=== PATIENT | female | born 1960 | race Caucasian/White ===

== ENCOUNTER 2018-10-24 07:36 | Observation (INO) | payer MEDICAID ==
[2018-10-24 08:34] LABS: ADD MAN DIFF? NO
[2018-10-24 08:40] LABS: WHITE BLOOD COUNT 7.5 10^3/ul (4.8-10.8)
[2018-10-24 08:40] LABS: BASOPHILS % 0.3 % (0.0-2.0); EOSINOPHILS % 0.5 % (0.0-7.0); HEMATOCRIT 33.6 % (37.0-47.0); HEMOGLOBIN 10.7 g/dl (12.0-16.0); LYMPHOCYTES # 1.4 10^3/ul (0.8-2.9); LYMPHOCYTES % 18.9 % (15.0-51.0); MEAN CORPUSCULAR HEMOGLOBIN 33.2 pg (29.0-33.0); MEAN CORPUSCULAR HGB CONC 31.8 g/dl (32.0-37.0); MEAN CORPUSCULAR VOLUME 104.3 fl (82.0-101.0); MEAN PLATELET VOLUME 9.6 fl (7.4-10.4); MONOCYTE # 0.4 10^3/ul (0.3-0.9); MONOCYTES % 5.7 % (0.0-11.0); NEUTROPHIL # 5.6 10^3/ul (1.6-7.5); NEUTROPHILS % 74.3 % (39.0-77.0); PLATELET COUNT 214 10^3/UL (140-415); RED BLOOD COUNT 3.22 10^6/ul (4.20-5.40); RED CELL DISTRIBUTION WIDTH 11.9 % (11.5-14.5)
[2018-10-24] MEDS: DIPHENHYDRAMINE 50 MG CAP PO (08:41)
[2018-10-24] MEDS: DIAZEPAM 5 MG TAB PO (08:41)
[2018-10-24] MEDS: FAMOTIDINE 20 MG TAB PO (08:41)
[2018-10-24 08:54] LABS: ANION GAP 8 (5-13); BLOOD UREA NITROGEN 16 mg/dl (7-20); CALCIUM 9.5 mg/dl (8.4-10.2); CARBON DIOXIDE 28 mmol/L (21-31); CHLORIDE 108 mmol/L (97-110); CREATININE 0.73 mg/dl (0.44-1.00); Estimated GFR > 60 mL/min (>60); GLUCOSE 91 mg/dl (70-220); POTASSIUM 3.6 mmol/L (3.5-5.1); SODIUM 144 mmol/L (135-144)
[2018-10-24 08:56] LABS: INR 0.97
[2018-10-24 08:57] LABS: CHOL/HDL RATIO 2.4 RATIO; HDL CHOLESTEROL 46 mg/dl (35-98); LDL CHOLESTEROL,CALCULATED 42 mg/dl; TRIGLYCERIDES 117 mg/dl (0-149)
[2018-10-24 08:57] LABS: CHOLESTEROL 111 mg/dl (100-200)
[2018-10-24 09:16] LABS: PARTIAL THROMBOPLASTIN TIME 24.3 Sec (23.0-35.0)
[2018-10-24] MEDS ORDERED: ONDANSETRON 4 MG INJ IV (11:00)
[2018-10-24] MEDS ORDERED: OXYCODONE/ACETAMINOPHEN (5/325) TAB PO (11:00)
[2018-10-24] MEDS ORDERED: AL HYDROX/MG HYDROX/SIMETH 30 ML CUP PO (11:00)
[2018-10-24] MEDS ORDERED: DIAZEPAM 2 MG TAB PO (11:00)
[2018-10-24] MEDS: SOD CHLORIDE 0.9% 1,000 ML IV (11:22)
[2018-10-24] MEDS: ACETAMINOPHEN 325 MG TAB PO (20:45)
[2018-10-24] MEDS: TICAGRELOR 90 MG TABLET PO (20:45)
[2018-10-25 05:06] LABS: ADD MAN DIFF? NO
[2018-10-25 05:17] LABS: WHITE BLOOD COUNT 4.7 10^3/ul (4.8-10.8)
[2018-10-25 05:17] LABS: BASOPHILS % 0.4 % (0.0-2.0); EOSINOPHILS # 0.1 10^3/ul (0.0-0.5); EOSINOPHILS % 1.7 % (0.0-7.0); HEMATOCRIT 31.6 % (37.0-47.0); HEMOGLOBIN 10.2 g/dl (12.0-16.0); LYMPHOCYTES # 1.8 10^3/ul (0.8-2.9); LYMPHOCYTES % 38.9 % (15.0-51.0); MEAN CORPUSCULAR HEMOGLOBIN 33.3 pg (29.0-33.0); MEAN CORPUSCULAR HGB CONC 32.3 g/dl (32.0-37.0); MEAN CORPUSCULAR VOLUME 103.3 fl (82.0-101.0); MEAN PLATELET VOLUME 9.6 fl (7.4-10.4); MONOCYTE # 0.4 10^3/ul (0.3-0.9); MONOCYTES % 9.2 % (0.0-11.0); NEUTROPHIL # 2.3 10^3/ul (1.6-7.5); NEUTROPHILS % 49.6 % (39.0-77.0); PLATELET COUNT 179 10^3/UL (140-415); RED BLOOD COUNT 3.06 10^6/ul (4.20-5.40); RED CELL DISTRIBUTION WIDTH 12.1 % (11.5-14.5)
[2018-10-25 05:49] LABS: ANION GAP 7 (5-13); BLOOD UREA NITROGEN 14 mg/dl (7-20); CALCIUM 9.3 mg/dl (8.4-10.2); CARBON DIOXIDE 24 mmol/L (21-31); CHLORIDE 112 mmol/L (97-110); CREATININE 0.71 mg/dl (0.44-1.00); Estimated GFR > 60 mL/min (>60); GLUCOSE 93 mg/dl (70-220); POTASSIUM 3.7 mmol/L (3.5-5.1); SODIUM 143 mmol/L (135-144)
[2018-10-25] MEDS ORDERED: ASPIRIN 81 MG TAB (07:57)
[2018-10-25] MEDS: ASPIRIN (EC) 81 MG TAB PO (08:03)
[2018-10-25] MEDS: TICAGRELOR 90 MG TABLET PO (08:04)
[2018-10-25] MEDS: ACETAMINOPHEN 325 MG TAB PO (09:14)
[2018-10-25 12:17] LABS: CREATINE KINASE 115 IU/L (23-200)
[2018-10-25 12:26] LABS: CK INDEX 0.8; CK-MB 0.91 ng/ml (0.0-2.4)
[2018-10-25 12:51] LABS: TROPONIN-I 0.127 ng/ml (0.000-0.120)
[2018-10-25] MEDS ORDERED: ATORVASTATIN 80 MG TAB PO (21:00)
[2018-10-26] MEDS ORDERED: PANTOPRAZOLE (EC) 40 MG TAB PO ×2 (06:00)
== END 2018-10-25 14:53 | disposition home or self-care (01) ==
LOC: CCL 07:36 → SDS 07:36 → CCL 15:41 → TEL 15:41 → ICU 19:42
DX: I25.110 Atherosclerotic heart disease of native coronary artery with unstable angina pectoris (principal); I10 Essential (primary) hypertension; E78.5 Hyperlipidemia, unspecified; Z95.5 Presence of coronary angioplasty implant and graft; D64.9 Anemia, unspecified; D75.89 Other specified diseases of blood and blood-forming organs; K21.9 Gastro-esophageal reflux disease without esophagitis; Z79.82 Long term (current) use of aspirin
CPT/HCPCS: 71045; 80048; 80061; 82550; 82553; 84484; 85025; 85610; 85730; 87081; 92928; 93005; 93458; 99217; G0378